=== PATIENT | female | born 1945 | race Hispanic/Latino ===

== ENCOUNTER 2017-08-04 10:34 | Outpatient (CLI) | payer MEDICARE, OTHER ==
--- NOTE | 2017-08-04 15:48 | Mammography Report ---
BILATERAL DIGITAL SCREENING MAMMOGRAM with CAD : 08/04/17 10:34:00 CLINICAL: Routine screening. COMPARISON:08/04/17, 06/06/16, 05/15/15, and going back to 10/06/13. FINDINGS: The breasts are heterogeneously dense, which may obscure small masses.Left upper posterior calcifications have been worked up before but have increased in number and required additional imaging. No associated mass or architectural distortion. The calcifications appear to be upper inner on previous workups. Additional bilateral scattered calcifications are stable. IMPRESSION: Left calcifications requiring additional imaging. BI-RADS CATEGORY: 0--Needs Additional Imaging RECOMMENDATION: Recall for left magnification views. COMMENT: Patient follow-up letters are generated by our [employer] application.
== END 2017-08-04 10:35 | disposition home or self-care (01) ==
LOC: SPVWC 10:34
PROVIDERS: ATTEND Obstetrics & Gynecology
DX: Z12.31 Encounter for screening mammogram for malignant neoplasm of breast (principal)
CPT/HCPCS: 77067; G0202

== ENCOUNTER 2017-08-24 13:48 | Outpatient (CLI) | payer MEDICARE, OTHER ==
--- NOTE | 2017-08-24 14:48 | Mammography Report ---
LEFT DIGITAL DIAGNOSTIC MAMMOGRAM : 08/24/17 13:48:00 CLINICAL: Recalled for calcifications. COMPARISON:08/04/17 screening FINDINGS: CC and ML magnification views demonstrate scattered upper inner posterior calcifications with benign morphology. No suspicious forms. No layering and no mass or architectural distortion. IMPRESSION: Benign calcifications. BI-RADS CATEGORY: 2 - - Benign RECOMMENDATION: Routine mammographic screening in one year. ACR BI-RADS MAMMOGRAPHIC CODES: 0 = Needs additional imaging evaluation; 1 = Negative; 2 = Benign; 3 = Probably benign; 4 = Suspicious; 5 = Malignant; 6 = Known biopsy-proven malignancy COMMENT: 1. Dense breast tissue, i.e., adenosis, fibrocystic changes, etc., may obscure an underlying neoplasm. 2. Approximately 10% of cancers are not detected with mammography. 3. A negative mammography report should not delay biopsy if a clinically suspicious mass is present. COMMENT: Patient follow-up letters are generated via our [employer] application.
== END 2017-08-24 13:49 | disposition home or self-care (01) ==
LOC: SPVWC 13:48
PROVIDERS: ATTEND Obstetrics & Gynecology
DX: R92.1 Mammographic calcification found on diagnostic imaging of breast (principal)
CPT/HCPCS: G0206-LT

== ENCOUNTER 2019-04-21 14:09 | Outpatient (CLI) | payer MEDICARE, OTHER ==
--- NOTE | 2019-04-21 16:11 | Mammography Report ---
LEFT DIGITAL DIAGNOSTIC MAMMOGRAM INDICATION: 6 month follow-up calcifications. TECHNIQUE: Digital left mammographic imaging was performed. Magnification views were obtained. COMPARISON: 10/28/2018 FINDINGS: Breast Density: The breasts are heterogeneously dense, which may obscure small masses. Spot magnification CC and ML views were performed and demonstrate stable calcifications. No suspiciou s forms or distribution. IMPRESSION: Benign calcifications. Return to routine mammographic screening. BI-RADS Category 2: Benign. Recommend routine screening mammography. A "normal" or negative report should not discourage follow up or biopsy of a clinically significant f inding. A written summary of these findings will be mailed to the patient. The patient will be entered into a mammography reporting system which will generate a reminder letter for the patient's next appointmen t at the appropriate interval. FURTHER INFORMATION: According to the [employer], yearly mammograms are recommend ed starting at age 40 and continuing as long as a woman is in good health. Breast MRI is recommended for women with an approximately 20-25% or greater lifetime risk of breast cancer, including women wi th a strong family history of breast or ovarian cancer and women who have been treated for Hodgkin's disease. Signer Name: Devin Corcoran MD Signed: 04/21/2019 4:06 PM Workstation Name: [id number]
== END 2019-04-21 14:10 | disposition home or self-care (01) ==
LOC: SPVWC 14:09
PROVIDERS: ATTEND Obstetrics & Gynecology
DX: R92.1 Mammographic calcification found on diagnostic imaging of breast (principal)

== ENCOUNTER 2021-04-17 10:26 | Outpatient (CLI) | payer MEDICARE, OTHER ==
--- NOTE | 2021-04-17 15:08 | Mammography Report ---
DIGITAL SCREENING MAMMOGRAM WITH CAD, 04/17/2021 CLINICAL INFORMATION / INDICATION: Routine screening mammography. SCREENING MAMMO TECHNIQUE: Digital bilateral 2D mammography was obtained in the craniocaudal and mediolateral obliqu e projections. This examination was interpreted with the benefit of Computer-Aided Detection analysis . COMPARISON: 08/04/2017 through 04/21/19. FINDINGS: Breast Density: The breasts are heterogeneously dense, which may obscure small masses. No dominant mass, suspicious calcifications, or architectural distortion in either breast. Benign-appearing calcifications, more numerous on the left than the right, are again identified. No n ew suspicious abnormality is seen. IMPRESSION: No mammographic evidence of malignancy. Follow up recommendation: Routine yearly BI-RADS Category 2: Benign. A "normal" or negative report should not discourage follow up or biopsy of a clinically significant f inding. A written summary of these findings will be mailed to the patient. The patient will be entered into a mammography reporting system which will generate a reminder letter for the patient's next appointmen t at the appropriate interval. The [employer] recommends yearly mammograms starting at age 40 and continuing as l ramos as a woman is in good health. Breast MRI is recommended for women with an approximate 20-25% or greater lifetime risk of breast cancer, including women with a strong family history of breast or ova cuauhtemoc cancer or who have been treated for Hodgkin's disease. Signer Name: Ezra Acosta MD Signed: 04/17/2021 3:04 PM Workstation Name: [id number]
== END 2021-04-17 10:27 | disposition home or self-care (01) ==
LOC: SPVWC 10:26
PROVIDERS: ATTEND Internal Medicine
DX: Z12.31 Encounter for screening mammogram for malignant neoplasm of breast (principal); N64.89 Other specified disorders of breast
CPT/HCPCS: 77067

== ENCOUNTER 2022-05-28 11:14 | Outpatient (CLI) | payer MEDICARE, OTHER | END 2022-05-28 11:15 | disposition home or self-care (01) | LOC: SPVWC 11:14 | PROVIDERS: ATTEND Internal Medicine | DX: Z12.31 Encounter for screening mammogram for malignant neoplasm of breast (principal) | CPT/HCPCS: 77067 ==